=== PATIENT | female | born 1995 | race African-American/Black ===

== ENCOUNTER 2022-11-17 17:14 | Emergency (ER) | payer MEDICAID ==
[~2022-11-17] VITALS: Ht 154.9 cm; Wt 70.0 kg
[2022-11-17 18:02] VITALS: BP 131/67
[2022-11-17] MEDS ORDERED: NEOM10SO12 EACH EAR (19:49)
[2022-11-17] MEDS ORDERED: NEOMYCIN-POLYMYXIN B-HYDROCORTISONE 1% OTIC SOLN 10ML EACH EAR ONE (20:00)
== END 2022-11-17 20:15 | disposition home or self-care (01) ==
LOC: ER 17:14
DX: H60.91 Unspecified otitis externa, right ear (principal); K02.9 Dental caries, unspecified
CPT/HCPCS: 99283